=== PATIENT | female | born 1990 | race Two or more races ===

== ENCOUNTER 2020-11-26 07:30 | Inpatient (IN) | payer OTHER ==
[2020-11-26] MEDS ORDERED: OXYTOCIN 20 UNITS in 0.9% NS 20 UNIT/1,000 ML INFUS.BAG IV ONE (08:07)
[2020-11-26] MEDS ORDERED: morphine SULFATE/PF 0.5 MG/ML (2cc Syringe - QUVA) ONE (08:08)
[2020-11-26] MEDS ORDERED: ELECTROLYTE-148 SOLN 1,000 ML IV SCH (08:15)
[2020-11-26] MEDS ORDERED: CITRIC ACID/SODIUM CITRATE 30 ML UNIT-DOSE CUP PO ONE (08:30)
[2020-11-26 08:33] VITALS: BMI 29.7
[2020-11-26] MEDS ORDERED: OXYTOCIN 10 UNITS/ML VIAL ONE (09:23)
[2020-11-26] MEDS ORDERED: DEXAMETHASONE SOD PHOSPHATE 4 MG/1 ML VIAL ONE (09:57)
[2020-11-26] MEDS ORDERED: METOCLOPRAMIDE HCL INJECTION 10 MG/2 ML VIAL ONE (09:57)
[2020-11-26] MEDS ORDERED: ceFAZolin SODIUM 1 GM VIAL ONE ×2 (09:57)
[2020-11-26] MEDS ORDERED: KETOROLAC TROMETHAMINE 30 MG/1 ML VIAL ONE (09:57)
[2020-11-26] MEDS ORDERED: ONDANSETRON 4 MG/2 ML VIAL ONE (09:57)
[2020-11-26] MEDS ORDERED: ACETAMINOPHEN 325 MG TABLET (FP) PO PRN (10:30)
[2020-11-26] MEDS ORDERED: METHYLERGONOVINE MALEATE 0.2 MG/1 ML AMP IM PRN (10:30)
[2020-11-26] MEDS ORDERED: OXYTOCIN 20 UNITS in 0.9% NS 20 UNIT/1,000 ML INFUS.BAG IV SCH (10:30)
[2020-11-26 11:37] LABS: CORD HCO3 19.7 mmHg (20-29); CORD PCO2 67.6 mmHg (30-78); CORD pH 7.083 (7.14-7.44)
[2020-11-26 11:46] LABS: CORD HCO3 20.2 mmHg (20-29); CORD PCO2 88.6 mmHg (30-78)
[2020-11-26 11:49] LABS: CORD pH 6.975 (7.14-7.44)
[2020-11-26] MEDS: IBUPROFEN 800 MG/8 ML IJ IVPB PRN ×2 (13:48→21:21)
[2020-11-26] MEDS: CEFAZOLIN 1 GM/D5W 1 GM/50 ML BAG IVPB SCH (17:40)
[2020-11-26] MEDS: FERROUS SO4 325 MG TABLET (FP) PO SCH (21:19)
[2020-11-26] MEDS ORDERED: oxyCODONE HCL 5 MG TABLET PO PRN (22:00)
[2020-11-27] MEDS: CEFAZOLIN 1 GM/D5W 1 GM/50 ML BAG IVPB SCH ×2 (01:03→09:42)
[2020-11-27] MEDS: SIMETHICONE 80 MG TAB.CHEW (FP) PO PRN ×3 (06:03→20:02)
[2020-11-27] MEDS: FERROUS SO4 325 MG TABLET (FP) PO SCH ×2 (09:42→23:36)
[2020-11-27] MEDS: ENOXAPARIN NA (PORCINE) 40 MG/0.4 ML DISP.SYRIN SQ SCH (09:42)
[2020-11-27] MEDS: PRENATAL VITAMINS W/ FOLIC ACID TABLET (FP) PO SCH (09:42)
[2020-11-27 09:58] LABS: BASO % 0.4 % (0-2.0); EOS % 1.6 % (0-4.5); HEMATOCRIT 29.9 % (32.4-45.2); HEMOGLOBIN 10.3 GM/dL (10.7-15.3); LYMPH % 15.2 % (8-40); MCH 28.8 pg (25.7-33.7); MCHC 34.6 g/dl (32.0-36.0); MEAN CELL VOLUME 83.4 fl (80-96); MEAN PLT VOLUME 8.8 fl (7.5-11.1); MONO % 6.2 % (3.8-10.2); NEUT % 76.6 % (42.8-82.8); PLATELET COUNT 280 10^3/uL (134-434); RBC 3.58 M/mm3 (3.60-5.2); WHITE BLOOD COUNT 10.8 K/mm3 (4.0-10.0)
[2020-11-27] MEDS ORDERED: BISACODYL 10 MG SUPP.RECT RC PRN (10:30)
[2020-11-27] MEDS: IBUPROFEN 600 MG TABLET (FP) PO PRN ×2 (14:17→20:03)
[2020-11-27] MEDS: SENNOSIDES/DOCUSATE COMBO (SENNA PLUS) TABLET (UD) PO PRN (20:03)
[2020-11-28] MEDS: SIMETHICONE 80 MG TAB.CHEW (FP) PO PRN ×2 (03:25→20:14)
[2020-11-28] MEDS: IBUPROFEN 600 MG TABLET (FP) PO PRN ×3 (03:25→20:14)
[2020-11-28] MEDS: ENOXAPARIN NA (PORCINE) 40 MG/0.4 ML DISP.SYRIN SQ SCH (09:42)
[2020-11-28] MEDS: PRENATAL VITAMINS W/ FOLIC ACID TABLET (FP) PO SCH (09:42)
[2020-11-28] MEDS: FERROUS SO4 325 MG TABLET (FP) PO SCH (09:43)
[2020-11-28] MEDS: SENNOSIDES/DOCUSATE COMBO (SENNA PLUS) TABLET (UD) PO PRN (20:14)
[2020-11-29] MEDS: FERROUS SO4 325 MG TABLET (FP) PO SCH ×2 (00:05→10:44)
[2020-11-29 09:56] LABS: BASO % 0.5 % (0-2.0); HEMATOCRIT 30.4 % (32.4-45.2); HEMOGLOBIN 10.2 GM/dL (10.7-15.3); LYMPH % 14.4 % (8-40); MCHC 33.7 g/dl (32.0-36.0); MEAN CELL VOLUME 83.3 fl (80-96); MEAN PLT VOLUME 8.4 fl (7.5-11.1); MONO % 4.8 % (3.8-10.2); NEUT % 75.3 % (42.8-82.8); PLATELET COUNT 293 10^3/uL (134-434); RBC 3.65 M/mm3 (3.60-5.2); RDW 14.1 % (11.6-15.6); WHITE BLOOD COUNT 10.3 K/mm3 (4.0-10.0)
[2020-11-29] MEDS: ENOXAPARIN NA (PORCINE) 40 MG/0.4 ML DISP.SYRIN SQ SCH (10:44)
[2020-11-29] MEDS: PRENATAL VITAMINS W/ FOLIC ACID TABLET (FP) PO SCH (10:44)
[2020-11-29 11:20] VITALS: BP 102/65; PULSE 101; TEMP 98
== END 2020-11-29 15:20 | disposition home or self-care (01) | DRG 540 ==
LOC: JLDR 07:30 → J3W 12:30
PROVIDERS: ADMIT Obstetrics & Gynecology; ATTEND Obstetrics & Gynecology
PROC: 10D00Z1 Extraction of Products of Conception, Low, Open Approach (ICD-10-PCS; principal; 2020-11-26)
PROC: 0DNW0ZZ Release Peritoneum, Open Approach (ICD-10-PCS; 2020-11-26)
DX: O34.211 Maternal care for low transverse scar from previous cesarean delivery (principal); O99.892 Other specified diseases and conditions complicating childbirth; N73.6 Female pelvic peritoneal adhesions (postinfective); Z3A.39 39 weeks gestation of pregnancy; Z37.0 Single live birth
CPT/HCPCS: 36415; 36600; 82803; 85025